=== PATIENT | male | born 1995 | race Asian ===

== ENCOUNTER 2021-10-21 17:37 | Emergency (ER) | payer OTHER, MEDICAID, SELFPAY ==
[2021-10-21 17:58] VITALS: BP 146/85; PULSE 71; RESP 17; TEMP 36.6; O2SAT 98; BMI 31.0
--- NOTE | 2021-10-21 18:50 | DI.RAD.S_ITS ---
PROCEDURE: XR CHEST 2V INDICATIONS: Chest pain TECHNIQUE: 2 views of the chest were acquired. COMPARISON: None. FINDINGS: Surgical changes and devices: None. Lungs and pleura: Lungs are clear. No pleural effusions or pneumothorax. Mediastinum: Mediastinal contours are normal. Heart size is normal. Bones and chest wall: No suspicious bony abnormalities. Soft tissues appear unremarkable. IMPRESSION: 1. No acute cardiopulmonary disease. Dictated by: Kvng Villareal M.D. on 10/21/2021 at 19:23 Approved by: Kvng Villareal M.D. on 10/21/2021 at 19:23
--- NOTE | 2021-10-21 19:07 | ED.CHESTPAIN ---
HPI - Chest Pain <John Paul Ybarra PA-C - Last Filed: 10/21/21 19:58> General Chief Complaint: Chest Pain Stated Complaint: Chest Pain Time Seen by Provider: 10/21/21 18:20 Source: patient Mode of arrival: Ambulatory History of Present Illness HPI narrative: Patient is a 26-year-old male presenting to the emergency department today for an evaluation of chest pain and mild shortness of breath. Patient states that his pain began approximately 5 days ago and he notes that he feels it is associated with his increased workout regimen. He states that he has experienced similar symptoms 1 year ago that had resolved on their own. He states that his pain is a constant ache with occasional sharp sensations. Additionally, he states that certain positions or movements worsen his pain. Patient states that he has increased his workouts at the gym and states that he has had to do his cardiovascular training with a mask on which he believes is making his chest pain worse. Patient denies fever, chills, cough, nausea, vomiting, diarrhea, abdominal pain, dysuria, hematuria, diaphoresis, jaw pain, numbness and tingling in the upper extremities, or any other concerning symptoms. No further concerns are voiced at this time. Related Data Home Medications Medication Instructions Recorded Confirmed No Known Home Medications 10/21/21 10/21/21 Allergies Allergy/AdvReac Type Severity Reaction Status Date / Time No Known Drug Allergies Allergy Verified 10/21/21 18:02 Review of Systems <John Paul Ybarra PA-C - Last Filed: 10/21/21 19:58> Constitutional Constitutional: Denies chills, Denies fatigue, Denies fever(s), Denies frequent falls, Denies lethargy and Denies weakness ENT Ears, Nose, Mouth, and Throat: Denies change in voice, Denies dizziness, Denies neck pain, Denies sore throat and Denies throat swelling Cardiovascular Cardiovascular: Reports chest pain, Denies irregular heart rhythm, Denies lightheadedness, Denies palpitations, Reports dyspnea, Denies dyspnea on exertion and Denies orthopnea Respiratory Respiratory: Denies cough, Reports dyspnea, Denies dyspnea on exertion and Denies wheezing Gastrointestinal Gastrointestinal: Denies abdominal pain, Denies change in bowel habits, Denies diarrhea, Denies nausea and Denies vomiting Genitourinary Genitourinary: Denies hematuria, Denies flank pain, Denies urinary incontinence and Denies urinary urgency Musculoskeletal Musculoskeletal: Denies back pain, Denies muscle weakness, Denies neck pain, Denies numbness and Denies tingling Integumentary/Breasts Skin/Breast: Denies pruritus, Denies erythema, Denies rash and Denies wounds Neurologic Neurologic: Denies dizziness, Denies frequent falls, Denies numbness, Denies tingling and Denies weakness Endocrine Endocrine: Denies fatigue and Denies palpitations Allergic/Immunologic Allergic/Immunologic: Denies throat swelling and Denies wheezing Patient History <John Paul Ybarra PA-C - Last Filed: 10/21/21 19:58> Social History Smoking Status: Never smoker Smoking Status: Never smoker alcohol intake frequency: holidays/special occasions only Substance Use Type: does not use Exam <John Paul Ybarra PA-C - Last Filed: 10/21/21 19:58> Narrative Exam Narrative: GENERAL: 26 year old patient appears stated age. Well-developed patient, in no acute distress. HEAD: Atraumatic. Normocephalic. EYES: Pupils equal round and reactive. Extraocular motions intact. No scleral icterus. No injection or drainage. ENT: Nose without bleeding, purulent drainage. Throat without erythema, tonsillar hypertrophy or exudate. Airway patent. NECK: Trachea midline. Non tender CARDIOVASCULAR: Regular rate and rhythm without murmurs, gallops, or rubs. RESPIRATORY: Clear to auscultation. Breath sounds equal bilaterally. No wheezes, rales, or rhonchi. GASTROINTESTINAL: Abdomen soft, non-tender, nondistended. EXTREMITIES: No edema or joint tenderness. MUSCULOSKELETAL: Tenderness to palpation over the sternum. No crepitance or bony deformity noted. BACK: Nontender without deformity or crepitance. No flank tenderness. NEURO: AOx3. SKIN: No rash or erythema of visible areas Initial Vital Signs Initial Vital Signs: Vital Signs Temperature 98 F 10/21/21 17:58 Pulse Rate 71 10/21/21 17:58 Respiratory Rate 17 10/21/21 17:58 Blood Pressure 146/85 H 10/21/21 17:58 Pulse Oximetry 98 10/21/21 17:58 <Bruna Dumont DO - Last Filed: 10/22/21 00:52> Initial Vital Signs Initial Vital Signs: Vital Signs Temperature 98 F 10/21/21 17:58 Pulse Rate 71 10/21/21 17:58 Respiratory Rate 17 10/21/21 17:58 Blood Pressure 146/85 H 10/21/21 17:58 Pulse Oximetry 98 10/21/21 17:58 Course <John Paul Ybarra PA-C - Last Filed: 10/21/21 19:58> Course Course Narrative: Chest x-ray, EKG obtained. IM Toradol administered. Orders Ordered: ED Orders 10/21/21 17:58 EKG-12 Lead Stat 10/21/21 18:50 XR chest 2V Stat Discontinued Medications Ketorolac Tromethamine (Ketorolac 30 Mg/Ml Vial) 15 mg IM NOW ONE Stop: 10/21/21 18:51 Last Admin: 10/21/21 19:14 Dose: 15 mg Documented by: GARRICK Vital Signs Vital signs: Vital Signs - 8 hr 10/21/21 17:58 10/21/21 19:47 Temperature 98 F Pulse Rate 71 77 Respiratory Rate 17 17 Blood Pressure 146/85 H 131/76 Pulse Oximetry 98 99 <Bruna Dumont DO - Last Filed: 10/22/21 00:52> Orders Ordered: ED Orders 10/21/21 17:58 EKG-12 Lead Stat 10/21/21 18:50 XR chest 2V Stat Discontinued Medications Ketorolac Tromethamine (Ketorolac 30 Mg/Ml Vial) 15 mg IM NOW ONE Stop: 10/21/21 18:51 Last Admin: 10/21/21 19:14 Dose: 15 mg Documented by: GARRICK Vital Signs Vital signs: Vital Signs - 8 hr 10/21/21 17:58 10/21/21 19:47 Temperature 98 F Pulse Rate 71 77 Respiratory Rate 17 17 Blood Pressure 146/85 H 131/76 Pulse Oximetry 98 99 MDM - Chest Pain <John Paul Ybarra PA-C - Last Filed: 10/21/21 19:58> Imaging Data Chest x-ray: Radiologist's Impression: PROCEDURE:? XR CHEST 2V ? INDICATIONS:? Chest pain ? TECHNIQUE:? 2 views of the chest were acquired.? ? COMPARISON:? None. ? FINDINGS:? ? Surgical changes and devices:? None.? ? Lungs and pleura:? Lungs are clear.? No pleural effusions or pneumothorax.? ? Mediastinum:? Mediastinal contours are normal.? Heart size is normal.? ? Bones and chest wall:? No suspicious bony abnormalities.? Soft tissues appear unremarkable.? ? IMPRESSION:? ? 1.? No acute cardiopulmonary disease. ? ? Dictated by: Kvng Villareal M.D. on 10/21/2021 at 19:23 ? ? Approved by: Kvng Villareal M.D. on 10/21/2021 at 19:23 ? ECG Data Interpretation: 69 beats per minute, [place] interval of 164 ms, normal sinus rhythm MDM Narrative Medical decision making narrative: To consider musculoskeletal chest pain versus costochondritis versus myocardial infarction versus acute coronary syndrome versus pneumonia. Overall physical examination, history, imaging obtained in the emergency department today were reassuring. Discussed physical examination findings with patient informed him that he is likely experiencing a musculoskeletal chest pain. I advised patient to continue taking Tylenol and ibuprofen as needed for pain management. Patient expresses understanding and agrees to plan. Strict return precautions were discussed with the patient prior to discharge. At this time patient is to with like to be discharged home and is stable for discharge. Discharge Plan Departure Patient Disposition: Home Clinical Impression: Chest pain Instructions: DI for Chest Pain Activity Restrictions/Additional Instructions: *You have been diagnosed with chest pain *What to do: *Please continue to take your regular medications as directed. [ ] New medication prescriptions sent to your pharmacy: [ ] [ ] New medication written as a paper prescription [X] No new medications given *Please follow up with your primary care provider in 2-3 days, call for an appointment. Let them know you were seen in the Emergency Department and that we ask that you be seen in follow up. We will electronically transmit a record of today's note if your PCP is in our system *If you do not have a primary care provider please contact the [facility] Resource line at [phone]. They will ask some questions about your medical history and help get you set up with a doctor in the community. *Return to Emergency Department if you should have any new, worsening or concerning symptoms, such as fever greater than 101 F, shaking chills, worsening pain, persistent vomiting or other bothersome symptoms. Prescriptions: No Action No Known Home Medications 0RF <Bruna Dumont, DO - Last Filed: 10/22/21 00:52> Cosign ED Attending Cosignature Attestation: I was immediately available in the department for consultation. Documentation has been reviewed. I agree with assessment and plan.
[2021-10-21] MEDS: KETOROLAC 30 MG/ML VIAL 15 MG IM (19:14)
[2021-10-21 19:47] VITALS: BP 131/76; PULSE 77; RESP 17; O2SAT 99
== END 2021-10-21 19:47 | disposition home or self-care (01) ==
PROVIDERS: Emergency Provider Physician Assistant
DX: R07.9 Chest pain, unspecified (principal); R06.02 Shortness of breath
CPT/HCPCS: 71046; 93005; 93010; 96372; 99283; J1885